=== PATIENT | female | born 1990 | race Hispanic/Latino ===

== ENCOUNTER 2019-01-24 16:52 | Day surgery (SDC) | payer OTHER ==
[2019-01-24 17:27] VITALS: BP 113/55; TEMP 99.1; BMI 45.3
--- NOTE | 2019-01-24 19:16 | PDOC.LDHP ---
Labor and Delivery H&P Chief complaint: other ([place] BBP) HPI: Ms. Ascencio is a pleasant 28yo female @ 38.2 by LMP confirmed by u/s at 15.4 complicated by maternal obesity and glucose intolerance who presents from clinic for concerning BPP. BPP was 10/31 with concern for oligohydramnios with RUBIO 5.42. She endorses good movement; no contractions; no vaginal d/c, bleeding, or LOF. has been complicated by maternal obesity which has been monitored with weekly BPP's since 32wks, last showed RUBIO of 15 and BPP 03/04. She failed her 1hr GTT (150), but passed her 3hr GTT. She has no gynocologic history and no history of STD's. Current gestational age (weeks): 38 (38.2) Dating criteria: last menstrual period Grav: 1 Para: 0 Current complications: none Past Medical History: GERD prior to . No other significant medical history. Current medications: pre- vitamins Previous surgical history: none Allergies/Adverse Reactions: Allergies Allergy/AdvReac Type Severity Reaction Status Date / Time No Known Allergies Allergy Unverified 01/24/19 17:18 Social history: none - Physical Exam Vital signs reviewed and normal: yes General: NAD, resting Heart: RRR Lungs: nonlabored breathing Abdomen: NTTP Extremeties: trace edema FHT: category 1, variability present [place] contractions every: infrequent - OB Labs Blood type: B RH: positive Antibody Screen: negative HIV: negative RPR: negative HEPSAg: negative 1 hour GCT: positive 3 hour GTT: normal GBS: negative Rubella: immune Additional Labs: A1C 5.3 H/H 11.6/34.5 - Assessment Concerning BPP 10/31 at clinic with concern for oligohydramnios - Plan Plan: admit to L&D -: 1. IUP with Concerning BPP - 38.2 today. No contractions, Cat 1 strip, FHR 150, no LOF or vaginal d/c - 10/31 in clinic today with RUBIO 5.42. Previously 03/04 with RUBIO 15 - Will repeat BPP now with growth ultrasound. - Encourage PO hydration and food intake - Continuous EFM VTE: ambulation Diet: Regular Code: Full Upper Level note: 28 y/o @ 38.2 WGA was sent over to L&D to be evaluated for 01/02 BPP in clinic. Her has been complicated by obesity, glucose intolerance, and concern for oligo. A/P: repeat BPP performed that was 12/31 with 2 off for breathing NST reactive RUBIO WNL Discharged home with strict return precautions. f/u with PNC and for induction on 01/30/19. Marianne Corbin MD, PGY-3 Addendum - Attending - Attending Attestation Date/Time: 01/25/19 0718 I personally evaluated the patient and discussed the management with Drs. Bergman and Shaquille. I agree with the History, Examination, Assessment and Plan documented above. Initial BPP 01/02 in clinic, sent over for repeat testing. Repeat BPP 03/04 (-2 for breathing) and growth ultrasound wnl. D/c home with precautions to return for scheduled induction next week.
--- NOTE | 2019-01-24 20:29 | ULT ---
EXAM: OB ultrasound COMPARISON: None HISTORY: female. Borderline oligohydramnios. TECHNIQUE: Multiplanar grayscale and color Doppler images were obtained in a transabdominal ult rasound. FINDINGS: There is a single live intrauterine with heart rate of 150 bpm. Estimated weight is 3493 g. Average age of the fetus based off today's examination is 38 weeks 4 days. BPD 9.52 cm -- 38 weeks 6 days HC 33.76 cm -- 38 weeks 5 days AC 34.25 cm -- 38 weeks 1 day FL 7.57 cm -- 38 weeks 5 days The placenta is anterior in location without focal abnormality. RUBIO is 10.2 cm which is low normal. The cervix was not seen secondary to shadowing from the head. There is no evidence of placenta previa. Biophysical profile: 6 of 8. 0 was given for breathing was which is not seen during the examina tion. IMPRESSION: 1. Single live intrauterine with estimated age of 34 weeks 4 days. 2. Biophysical profile of 6 of 8
== END 2019-01-24 20:11 | disposition home or self-care (01) ==
LOC: L&D/OP 16:52
PROVIDERS: ATTEND Obstetrics & Gynecology
DX: O41.03X0 Oligohydramnios, third trimester, not applicable or unspecified (principal); O99.213 Obesity complicating pregnancy, third trimester; E66.9 Obesity, unspecified; O99.810 Abnormal glucose complicating pregnancy; Z3A.38 38 weeks gestation of pregnancy
CPT/HCPCS: 76700; 76815; 76819; 99282

== ENCOUNTER 2019-01-30 19:30 | Inpatient (IN) | payer MEDICAID, OTHER, SELFPAY ==
[2019-01-30 23:42] VITALS: BMI 52.7
[2019-01-30] MEDS: Lactated Ringer's 1,000 ML IV SCH (23:45)
--- NOTE | 2019-01-31 00:50 | PDOC.FPROB ---
FMR OB H&P: HPI - History of Present Illness Chief Complaint: Labor induction History of Present Illness: Patient is a 28 yo female at 39.1 weeks who presents today for elective labor induction. Her course has been complicated by morbid obesity ( BMI 52) with at least 40 pound weight gain during the . She has been followed by MFM and has been receiving weekly BPP. anatomy scan was normal at 20 weeks. She was evaluated on L&D last week on 01/24/19 for possible oligohydramnios and concerning BPP of 4/8 at the clinic. At that time on L&D her BPP was 6/10. She was discharged home with close follow up with PCP Deedee Luu DO. It was decided at last clinic visit that she would be scheduled for induction today. Blood type: B positive GBS negative Rubella immune Primary Care Physician: Deedee Luu DO FMR OB H&P: Current - Care : 1 Para: 0 Gestational age: 39.1 weeks Due date: 02/05/19 per 16.0 week U/S & LMP Total weight gain: 40 pounds - OB Labs Blood type: B RH: positive Antibody Screen: negative HIV: negative RPR: negative HepBsAg: negative Rubella: immune Quad screen: negative Gonorrhea: negative Chlamydia: negative 1 hour gtt: failed 3 hour GTT: passed GBS: negative - Anatomy Survey Anatomy survey: Normal FMR OB H&P: History - Past Medical History PMH: Morbid obesity - OB History OB History: at 39.1 weeks EGA. Placenta is located left anterior. Has been followed by [facility] in [place]. Normal anatomy scan at 20 weeks. FMR OB H&P: Medications - Current Home Medications: Medication Instructions Recorded Confirmed Type 105/Iron/Folic AC/Dha 1 tab PO DAILY 01/24/19 01/30/19 History [Prena1 True Combo Pack] Allergies/Adverse Reactions: Allergies Allergy/AdvReac Type Severity Reaction Status Date / Time No Known Allergies Allergy Unverified 01/24/19 17:18 FMR OB H&P: ROS - Review of Systems General: denies: fever/chills, fatigue, recent trauma Eyes: denies: vision changes Cardiovascular: denies: chest pain, edema Respiratory: denies: cough, congestion, shortness of breath Gastrointestinal: denies: abdominal pain, nausea, vomiting, diarrhea, constipation Genitourinary (Female): denies: vaginal discharge, vaginal pain, vaginal bleeding, contractions, vaginal pressure Musculoskeletal: denies: pain, tenderness, swelling, decrease range of motion Neurologic: denies: syncope, weakness, headache Integumentary: denies: itching, rash, lesions FMR OB H&P: Vital Signs - Maternal Vital signs: Vital Signs - First Documented Temp Pulse Resp BP Pulse Ox 98.6 F 81 18 101/64 95 01/30/19 23:36 01/30/19 23:36 01/30/19 23:36 01/30/19 23:36 01/30/19 23:36 - Heart Tones Baseline: 130 Variability: moderate Acceleration: present Deceleration: absent Category: category 1 FMR OB H&P: Physical Exam - Physical Exam General: NAD, awake, alert and oriented HEENT: normocephalic and atraumatic, EOMI, grossly normal vision, grossly normal hearing Neck: supple, FROM Abdomen: soft, non-tender Neurological: sensation to pain,touch and proprioception grossly normal Skin: no rash, good tugor, no jaundice Psychiatric: intact recent and remote memory, normal mood and affect - Pelvic Exam Vulva: normal hair distribution, no lesions, no discharge, no blood Cervix: no blood Deviation from normal: cervix high, thick, and closed Godfrey score: 0 Membranes: intact Presentation: vertex FMR OB H&P: A/P - Problem List (1) Morbid obesity Current Visit: Yes Status: Chronic Code(s): E66.01 - MORBID (SEVERE) OBESITY DUE TO EXCESS CALORIES (2) Term Current Visit: Yes Status: Acute Code(s): Z34.90 - ENCNTR FOR SUPRVSN OF NORMAL , UNSP, UNSP TRIMESTER Disposition: 1. Term at 39.1 weeks 2. Morbid obesity Patient here for elective labor induction. Due to current Godfrey score of 0, will plan to start Cytotec at 0100. Will recheck cervix at 0430. Admission OB labs ordered. Anticipate vaginal delivery. Discussion: Date/Time: 01/31/19 0045 This H&P was discussed with [] and [] who agree with the above documentation and plan.
[2019-01-31] MEDS ORDERED: Acetaminophen 500 MG TAB PO PRN (00:54)
[2019-01-31] MEDS ORDERED: Ondansetron PF 4 MG/2 ML Vial IVP PRN ×2 (00:54→16:19)
[2019-01-31] MEDS ORDERED: Promethazine HCl 25 MG/ML VIAL IM PRN ×2 (00:54→16:19)
[2019-01-31] MEDS ORDERED: NS / Oxytocin 40 units/1000ml 1,000 ML IV PRN (00:54)
[2019-01-31] MEDS ORDERED: Ibuprofen 800 MG TAB PO PRN (00:54)
[2019-01-31] MEDS ORDERED: Lidocaine 1% (PF) 30 ML VIAL SC PRN (00:54)
[2019-01-31] MEDS ORDERED: HYDROcodone/Acetaminophen 5/325 mg Tablet PO PRN (00:54)
[2019-01-31] MEDS ORDERED: Carboprost 250 MCG/ML AMP IM PRN (00:54)
[2019-01-31] MEDS ORDERED: hydrALAZINE 20 MG/ML VIAL SLOW IVP PRN (00:54)
[2019-01-31] MEDS ORDERED: Misoprostol 200 MCG TAB PR PRN (00:54)
[2019-01-31] MEDS ORDERED: Methylergonovine 0.2 MG/ML VIAL IM PRN (00:54)
[2019-01-31] MEDS ORDERED: Diphenoxylate HCl/Atropine Tablet PO PRN (00:54)
[2019-01-31] MEDS: Misoprostol 100 MCG TAB VAG SCH ×3 (01:12→08:47)
[2019-01-31 01:14] LABS: Hemoglobin 12.3 g/dL (12.0-16.0); Mean Corpuscular HGB CONC 33.2 g/dL (32.0-36.0); Mean Corpuscular Hemoglobin 28.7 pg (27.0-31.0); Mean Corpuscular Volume 86.4 fL (78.0-98.0); Mean Platelet Volume 9.6 fL (7.4-10.4); Platelet Count 196 thou/uL (130-400); RBC Distribution Width 12.5 % (11.5-14.5); Red Blood Cell (RBC) Count 4.28 mill/uL (4.20-5.40)
[2019-01-31 01:51] LABS: HBSAg Index 0.27 S/CO (0-0.99); Hep B Surf Ag Non-Reactive S/CO (NonReactive)
--- NOTE | 2019-01-31 04:22 | PDOC.LDPN ---
Labor & Delivery Progress Note - Subjective Subjective: comfortable - Objective Vital signs reviewed and normal: yes General: NAD, resting, breathing through contractions Uterine fundus: non tender Effacement: 0% Station: -3 FHT: category 1 [place] contractions every: 2-3 min - Assessment (1) Morbid obesity Code(s): E66.01 - MORBID (SEVERE) OBESITY DUE TO EXCESS CALORIES Current Visit : Yes Status: Chronic (2) Term Code(s): Z34.90 - ENCNTR FOR SUPRVSN OF NORMAL , UNSP, UNSP TRIMESTER Current Visit: Yes Status: Acute Plan: continue plan of care, labor augmentation (Cytotec x2) -: Induction of labor for morbid obesity at 39.1 weeks. Continues to have category 1 strip. Contractions every 2-3 min. Normal vitals. Plan to apply cytotec again. Recheck in 3-4 hours.
--- NOTE | 2019-01-31 08:00 | PDOC.EVN ---
Event Note - Event Note Event Note: 0655: Pt states she feels questionable contractions spaced >10 minutes apart. Denies any abdominal pain, headache, vaginal pain or noticing any vaginal fluid/ blood/discharge.
--- NOTE | 2019-01-31 08:39 | PDOC.LDPN ---
Labor & Delivery Progress Note - Subjective Subjective: comfortable - Objective Vital signs reviewed and normal: yes General: NAD Uterine fundus: non tender Dilation: 1cm Effacement: 50% Station: -2 FHT: category 1 - Assessment (1) Term Code(s): Z34.90 - ENCNTR FOR SUPRVSN OF NORMAL , UNSP, UNSP TRIMESTER Current Visit: Yes Status: Acute (2) Morbid obesity Code(s): E66.01 - MORBID (SEVERE) OBESITY DUE TO EXCESS CALORIES Current Visit : Yes Status: Chronic Plan: continue plan of care, labor augmentation -: Term w/ induction of labor - cytotec at 0100 and 0410, recheck in 4hrs (1230) - pt is showing cervical change, 1, 50%, -2, Godfrey 7 - Tracing had recent change from cat 1 to cat 2 due to minimal variability, will hold on cytotec and give mother juice - Minimal perceivable contractions, spaced > 10 minutes - Monitor shows small amplitude cxns spaced variably from 3-10 minutes Morbid obesity - will evp general counsel upon D/C Case discussed with Dr. Luu
--- NOTE | 2019-01-31 12:40 | PDOC.LDPN ---
Labor & Delivery Progress Note - Subjective Subjective: comfortable, painful contractions (mildly, primarily in her back) - Objective Vital signs reviewed and normal: yes General: NAD Uterine fundus: non tender Dilation: 1 Effacement: 50% Station: -2 FHT: category 1 [place] contractions every: 2-4min - Assessment (1) Term Code(s): Z34.90 - ENCNTR FOR SUPRVSN OF NORMAL , UNSP, UNSP TRIMESTER Current Visit: Yes Status: Acute (2) Morbid obesity Code(s): E66.01 - MORBID (SEVERE) OBESITY DUE TO EXCESS CALORIES Current Visit : Yes Status: Chronic Plan: continue plan of care -: Term w/ induction of labor - cytotec at 0100, 0410, and 0900 - nurse notes 2nd cytotec fell out and likely not effective - 0800 check: 1, 50%, -2, ant, Godfrey 7; 1200 check: 1, 50%, -2 mid, Godfrey 6 - Tracing: Baseline 130, moderate variability, no accels, no decels, cxn occurring q2-4 minutes - Cxns are now more perceivable, pt notes pain primarily in her back - Plan to walk to the pt now, will attempt placement of balloon, if successful will leave in place for 12hrs or until it's removable without deflation Morbid obesity - will family court counsellor upon D/C
[2019-01-31] MEDS ORDERED: Butorphanol Tartrate 1 MG/ML VIAL ONE (13:48)
[2019-01-31] MEDS ORDERED: Butorphanol Tartrate 1 MG/ML VIAL SLOW IVP PRN (14:00)
[2019-01-31] MEDS ORDERED: Fentanyl 4 mcg/Bup 0.1% Cadd 100 ML ONE ×2 (15:17→23:10)
[2019-01-31] MEDS: Lactated Ringer's 1,000 ML IV SCH ×2 (16:14→18:15)
[2019-01-31] MEDS ORDERED: diphenhydrAMINE 50 MG/ML VIAL IVP PRN (16:19)
[2019-01-31] MEDS ORDERED: Lactated Ringer's 500 ML IV PRN (16:19)
[2019-01-31] MEDS ORDERED: Naloxone HCl 0.4 mg/ml Vial IVP PRN ×2 (16:19)
[2019-01-31] MEDS ORDERED: Acetaminophen 325 MG TAB PO PRN (16:19)
[2019-01-31] MEDS ORDERED: ePHEDrine/0.9% NaCl/PF SYRINGE 50 mg/10 ml SLOW IVP PRN (16:19)
[2019-01-31] MEDS ORDERED: Communication Order-Pharmacy FS SCH (16:30)
[2019-01-31] MEDS ORDERED: Fentanyl 4 mcg/Bupivacaine 0.1% Cassette 100 ML EPIDURAL SCH (16:30)
[2019-01-31] MEDS: NS w/ Oxytocin 10 units 500 ML IV SCH (16:35)
--- NOTE | 2019-01-31 17:17 | PDOC.LDPN ---
Labor & Delivery Progress Note - Subjective Subjective: comfortable - Objective Vital signs reviewed and normal: yes General: NAD, resting Uterine fundus: non tender Dilation: 5 Effacement: 50% Station: -2 FHT: category 1 - Assessment (1) Term Code(s): Z34.90 - ENCNTR FOR SUPRVSN OF NORMAL , UNSP, UNSP TRIMESTER Current Visit: Yes Status: Acute (2) Morbid obesity Code(s): E66.01 - MORBID (SEVERE) OBESITY DUE TO EXCESS CALORIES Current Visit : Yes Status: Chronic (3) Glucose intolerance Code(s): E74.39 - OTHER DISORDERS OF INTESTINAL CARBOHYDRATE ABSORPTION Current Visit: Yes Status: Acute Plan: pitocin for augmentation -: Term w/ induction of labor - cytotec at 0100, 0410, and 0900 - nurse notes 2nd cytotec fell out and likely not effective - 0800 check: 1, 50%, -2, ant, Godfrey 7; 1200 check: 1, 50%, -2 mid, Godfrey 6; 1300 3, 50%, -2 mid; 1700 5, 60%, -2, ant Godfrey 10 - Tracing: Baseline 135, moderate variability, no accels, no decels, cxn occurring q2-4 minutes - Epidural at 1600 - Pitocin protocol initiated at 1400 - Balloon out at 1700 Morbid obesity - will career guidance counselor upon D/C Glucose intolerance - failed 1hr, passed 3hr gtt
--- NOTE | 2019-01-31 20:44 | PDOC.LDPN ---
Labor & Delivery Progress Note - Subjective Subjective: comfortable - Objective Vital signs reviewed and normal: yes General: NAD, resting SVE: at 20:[address] Chicas Dilation: 7 Effacement: 75% Station: -2 FHT: category 1 (Baseline 150, moderate variability, no decelerations) [place] contractions every: 1-2 min Other exam findings: intact membranes - Assessment (1) Morbid obesity Code(s): E66.01 - MORBID (SEVERE) OBESITY DUE TO EXCESS CALORIES Current Visit : Yes Status: Chronic (2) Term Code(s): Z34.90 - ENCNTR FOR SUPRVSN OF NORMAL , UNSP, UNSP TRIMESTER Current Visit: Yes Status: Acute Comment: Pitocin at 14, making cervical change, will continue current plan Plan: continue plan of care
--- NOTE | 2019-01-31 22:48 | PDOC.LDPN ---
Labor & Delivery Progress Note - Subjective Subjective: comfortable - Objective Vital signs reviewed and normal: yes General: NAD, resting, breathing through contractions Uterine fundus: non tender SVE: at 22:[address] Corbin, Dr. Chicas and RN Dilation: 7 Effacement: 75% Station: -2 FHT: category 1 (FHR 150 baseline, moderate variability, no decelerations) [place] contractions every: 1-2 min Other exam findings: membranes intact - Assessment (1) Morbid obesity Code(s): E66.01 - MORBID (SEVERE) OBESITY DUE TO EXCESS CALORIES Current Visit : Yes Status: Chronic (2) Term Code(s): Z34.90 - ENCNTR FOR SUPRVSN OF NORMAL , UNSP, UNSP TRIMESTER Current Visit: Yes Status: Acute Comment: Pitocin at 14, making cervical change, will continue current plan Plan: continue plan of care, other (Will have patient sit upright to apply gravity due to baby not being well engaged. Will recheck in 45-60 min to evaluate for possible AROM.)
--- NOTE | 2019-01-31 23:45 | PDOC.LDPN ---
Labor & Delivery Progress Note - Subjective Subjective: comfortable - Objective Vital signs reviewed and normal: yes General: NAD, resting, breathing through contractions Uterine fundus: non tender SVE: at 23:[address] Buitrago Dilation: 7 Effacement: 75% Station: -2 FHT: category 1 (FHR baseline 150, moderate variability, 2 isolated variable decelerations that are not recurrent) [place] contractions every: 2 min - Assessment (1) Morbid obesity Code(s): E66.01 - MORBID (SEVERE) OBESITY DUE TO EXCESS CALORIES Current Visit : Yes Status: Chronic (2) Term Code(s): Z34.90 - ENCNTR FOR SUPRVSN OF NORMAL , UNSP, UNSP TRIMESTER Current Visit: Yes Status: Acute Comment: Baby still not engaging cervix well. Unable to perform AROM safely. Discontinue Pitocin augmentation at this time for overnight. Will resume in the early AM. Will ask anesthesia to turn down epidural to allow for patient to ambulate with assistance. Will let patient eat overnight. Plan to recheck at 0600 on 02/01/19.
[2019-02-01] MEDS: Lactated Ringer's 1,000 ML IV SCH ×3 (06:00→20:28)
--- NOTE | 2019-02-01 06:06 | PDOC.LDPN ---
Labor & Delivery Progress Note - Subjective Subjective: comfortable - Objective General: NAD Uterine fundus: non tender SVE: @[address] Chicas Dilation: 7 Effacement: 75% Station: -2 FHT: category 1 (Moderate variability, FHR 130, no decelerations) [place] contractions every: 5-6min Other exam findings: Intact membranes - Assessment (1) Term Code(s): Z34.90 - ENCNTR FOR SUPRVSN OF NORMAL , UNSP, UNSP TRIMESTER Current Visit: Yes Status: Acute Comment: Baby still not engaging cervix well. Unable to perform AROM safely. Will restart epidural and pitocin augmentation after reactive NST. Recheck at 1000am (2) Morbid obesity Code(s): E66.01 - MORBID (SEVERE) OBESITY DUE TO EXCESS CALORIES Current Visit : Yes Status: Chronic (3) Glucose intolerance Code(s): E74.39 - OTHER DISORDERS OF INTESTINAL CARBOHYDRATE ABSORPTION Current Visit: Yes Status: Acute Plan: pitocin for augmentation
[2019-02-01] MEDS: Misoprostol 100 MCG TAB VAG SCH ×6 (06:58→20:34)
[2019-02-01] MEDS: NS w/ Oxytocin 10 units 500 ML IV SCH ×2 (07:00→14:20)
[2019-02-01] MEDS ORDERED: Fentanyl 4 mcg/Bup 0.1% Cadd 100 ML ONE (11:45)
--- NOTE | 2019-02-01 12:03 | PDOC.EVN ---
Event Note - Event Note Event Note: Late entry from 0900 Pt examined. Cervix /-2 Unable to interpret FHT due to difficulty monitoring baby Pt AROMed. IUPC and FSE placed. Titrate pitocin to adequate MVUs. Recheck 4 hrs.
[2019-02-01] MEDS ORDERED: Lidocaine 1% (PF) 30 ML VIAL ONE (12:10)
[2019-02-01] MEDS ORDERED: NS / Oxytocin 40 units/1000ml 0 ML ONE (12:10)
--- NOTE | 2019-02-01 14:57 | PDOC.EVN ---
Event Note - Event Note Event Note: 14:52 on 02/01 Patient unchanged at 14:50 with cervical exam of 5.5/80/-2. Discussed proceeding with C/S given patient has not made change since 17:00 last night. Appears to have cephalopelvic disproportion. Patient has been on pitocin with adequate contractions and no cervical change >4 hours. Patient understood risks and benefits of proceeding with C/S. Geophysical Operator used and all questions answered. Jennifer Siegel, DO PGY-3
[2019-02-01] MEDS: Bicitra 30 ML UDCUP ONE ×2 (15:42→18:35)
[2019-02-01] MEDS ORDERED: Oxytocin 10 UNITS/ML VIAL ONE ×2 (15:49→16:33)
[2019-02-01] MEDS ORDERED: Ondansetron PF 4 MG/2 ML Vial ONE ×2 (15:49→16:42)
[2019-02-01] MEDS ORDERED: Ketorolac Tromethamine 30 MG/ML VIAL ONE ×2 (15:49→16:42)
[2019-02-01] MEDS ORDERED: Phenylephrine HCL 10 MG/ML VIAL ONE (15:51)
[2019-02-01] MEDS ORDERED: Fentanyl 100 MCG/2 ML VIAL ONE (16:12)
[2019-02-01] MEDS ORDERED: MORPHINE 5 MG/10 ML PF VIAL ONE (16:25)
[2019-02-01] MEDS ORDERED: PHENYLEPHRINE-NS 100 MCG/ML 10 ML SYRINGE ONE (16:42)
[2019-02-01] MEDS ORDERED: Methylergonovine 0.2 MG/ML VIAL ONE (16:43)
[2019-02-01] MEDS ORDERED: Ondansetron PF 4 MG/2 ML Vial IVP PRN (17:25)
[2019-02-01] MEDS ORDERED: Naloxone HCl 0.4 mg/ml Vial IVP PRN ×2 (17:25)
[2019-02-01] MEDS ORDERED: Promethazine HCl 25 MG/ML VIAL IM PRN (17:25)
[2019-02-01] MEDS ORDERED: L&D-Morphine 4 MG/ML VIAL SLOW IVP PRN (17:25)
[2019-02-01] MEDS ORDERED: Naloxone HCl 0.4 mg/ml Vial IV PRN (17:25)
[2019-02-01] MEDS ORDERED: Meperidine HCl/PF 25 MG/ML VIAL SLOW IVP PRN (17:25)
[2019-02-01] MEDS ORDERED: diphenhydrAMINE 50 MG/ML VIAL IVP PRN (17:25)
[2019-02-01] MEDS ORDERED: Ondansetron HCl/PF 4 MG/2 ML Vial IVP PRN (17:25)
[2019-02-01] MEDS ORDERED: Promethazine HCl 25 MG SUPP PR PRN (17:25)
[2019-02-01] MEDS ORDERED: HYDROmorphone 2 MG/ML VIAL SLOW IVP PRN (17:25)
[2019-02-01] MEDS ORDERED: Azithromycin 500 MG in Sodium Chloride 0.9% 250 ML 250 ML IVPB SCH ×2 (17:30→19:00)
[2019-02-01] MEDS ORDERED: Communication Order-Pharmacy FS SCH (17:30)
[2019-02-01] MEDS ORDERED: CEFAZOLIN 2 GM in Premix Bag 1 BAG IVPB SCH (17:30)
[2019-02-01] MEDS ORDERED: Bicitra 30 ML UDCUP PO SCH (17:30)
[2019-02-01 19:15] LABS: Syphilis Antibody Nonreactive (Nonreactive); Syphilis Antibody Index 0.04 S/CO (<1.00 Non-Reactive)
--- NOTE | 2019-02-01 22:25 | PDOC.EVN ---
Event Note - Event Note Event Note: At 2130, patient was resting quietly in her room with male baby at bedside. She states that she feels well, but is having mild pain 2/10 near her caesarean incision. She denies pain anywhere else. She recently had her pad changed about 1 hour ago, her current pad is about 1/4 full of blood. ROS: Denies headache, blurry vision, nausea/vomiting, LE cramping or swelling. Has mild tenderness over abdominal incision site. PE: Vitals: Temp 99.1F, HR 64, RR 18, BP 143/96 Wound vac placed over caesarean incision, surrounding skin is dry and intact. No lower extremity edema. No fundal tenderness to palpation. Assessment & Plan: 1. S/P , 4 hours -Uncomplicated of healthy male at 1622 today. Patient recovering well. Will continue pain control and routine post- care. Patient instructed to notify RN if increased pain at incision site. 2. Morbid obesity
[2019-02-01] MEDS: Ketorolac Tromethamine 30 MG/ML VIAL IVP PRN (23:19)
[2019-02-02] MEDS: Lactated Ringer's 1,000 ML IV SCH (05:03)
[2019-02-02] MEDS: Ketorolac Tromethamine 30 MG/ML VIAL IVP PRN (05:04)
[2019-02-02] MEDS ORDERED: Adacel (T-DAP) 0.5 ML SYRINGE IM ONE (08:17)
[2019-02-02] MEDS ORDERED: hydrALAZINE 20 MG/ML VIAL SLOW IVP PRN ×2 (08:17→08:19)
[2019-02-02] MEDS ORDERED: HYDROcodone/Acetaminophen 5/325 mg Tablet PO PRN ×3 (08:19→10:15)
[2019-02-02] MEDS ORDERED: diphenhydrAMINE 25 MG CAP PO PRN (08:19)
[2019-02-02] MEDS ORDERED: Simethicone Chewable 80 MG TAB PO PRN (08:19)
[2019-02-02] MEDS ORDERED: Lanolin Ointment 7 GM TUBE TOP PRN (08:19)
--- NOTE | 2019-02-02 08:20 | PDOC.OPDEL ---
OB Operative/Delivery Note Delivery Dr/Surgeon: Chantal PGY-3, Osmani PGY-3, Deedee Luu Attending Pre-Delivery Diagnosis: medically indicated induction Procedure/Post Delivery Dx: primary low transverse CS Weeks gestation: 39 (3 days) Anesthesia: epidural - Findings A Sex: male Weight: 3.827 kg - 1 min: 8 - 5 min: 9 - Additional Findings/Plan Estimated blood loss: 990 Compilations/Other Findings: Date of Procedure: 02/01/19 Procedure: Primary low transverse caesarean section Preoperative Diagnosis: 1)Term intrauterine 2) Failure to Progress 3) Glucose Intolerance 4) Morbid Obesity Postoperative Diagnosis: 1)same as above plus any other findings during surgery Anesthesia: epidural Indications: The patient is a 28 year old G1,P0 female at 39.3 weeks gestation who presents for a primary LTCS due to infant failure to progress. Procedure in Detail: After risks, benefits, and alternatives were explained to the patient, she gave informed consent. Pre-operative antibiotics included Cefazolin 2 gram IV and Azithromycin 500 mg IV. The patient was taken to the operating room and epidural anesthesia was bolused. She was placed in the supine position with a left tilt and prepped and draped in usual sterile fashion. A Pfannenstiel incision was made with a scalpel and carried down to the level of the fascia which was sharply nicked. The fascial cut was extended bilaterally with curved Billingsley sissors. The inferior and superior edges of the cut fascial edges were elevated with Clifton clamps and the underlying rectus muscles were sharply and bluntly dissected free. The recti were divided digitally and retracted manually. The peritoneum was entered bluntly and retracted manually. An abilio O retractor was inserted and the uterus was visualized. There were some dilated uterine vessels off to the maternal Right of the uterues. A low transverse score was made with the scalpel more to the maternal left and the uterus was entered in the midline with the scalpel. Clear fluid was seen. The hysterotomy was extended manually. The was noted to be vertex and was easily delivered by fundal pressure. Mouth and nares were bulb suctioned. Cord clamped and cut and grossly normal male/female was handed to waiting nurse. Cord blood was obtained. Placenta was manually extracted, found to be intact with 3 vessel cord and discarded. The uterus was externalized and the endometrium was curetted with a dry lap. The uterus was closed with a running locking 1- Monocryl suture followed by a running non-locking 1-0 Monocryl imbricating suture. Following this hemostasis was noted. The abdomen was irrigated with saline and suctioned free of clots. The uterus was internalized and the hysterotomy was again noted to be hemostatic. The fascia was closed with a running non-locking 1 PDS suture. The subcutaneous tissue was irrigated and there were no bleeders. The subq was approximated with 2 running non locking 2-0 plain gut suture. The skin was approximated with asher and a wound vac dressing was placed. All counts were correct. The patient tolerated the procedure well and was taken to the recovery room in stable condition. QBL: 990 ml Complications: None Specimens: Cord blood sent to lab for blood type Findings: Grossly normal male infant with apgars of 8 and 9. Grossly normal placenta with 3 vessel cord discarded. Drains: Byrd to gravity draining clear urine Post delivery plan: routine recovery Addendum - Attending - Attending Attestation Date/Time: 02/02/19 5650 I was present for and assisted in the entire uncomplicated PLTCS completed by Angel Cornejo and Christal. I agree with documented findings.
--- NOTE | 2019-02-02 08:37 | PDOC.PP ---
Post Progress Note Post Day #: 1 Subjective: Pt reports doing well. Reports pain as minimal. Says current pain regimen working well. Pt has not been up and moving around much. Only eating clears at this time. Denies minimal lochia. Denies fever, chills, SOB, chest pain. Denies any n/v/d/c. Denies any dizziness or lightheadness. PO intake tolerated: yes Flatus: no Ambulation: yes (Minimal) Vital Signs (12 hours) Temp Pulse Resp BP Pulse Ox 02/02/19 08:02 98.3 F 68 20 90/50 L 96 02/02/19 08:00 96 02/02/19 05:00 98.0 F 63 16 96/50 L 02/01/19 23:25 98.0 F 75 18 101/54 L 02/01/19 21:30 99.1 F 64 16 103/46 L Weight Weight 143.789 kg - Physical Examination General: NAD Cardiovascular: no m/r/g, RRR Respiratory: clear to auscultation bilaterally, non-labored breathing Abdominal: + bowel sounds, lochia (Reports as light), no distention, appropriately TTP Fundus firm & at: Umbilicus Extremities: negative homans (B) Skin: CS incision dry & intact (Wound vac in place. NO sign redness or drainage) Neurological: no gross focal deficits Psychiatric: A&Ox3, normal affect Result Diagrams: 02/02/19 08:41 Additional Labs: Post Labs Blood Type B POSITIVE 01/31/19 01:25 Hep Bs Antigen Non-Reactive S/CO (NonReactive) 01/31/19 01:04 (1) Glucose intolerance Code(s): E74.39 - OTHER DISORDERS OF INTESTINAL CARBOHYDRATE ABSORPTION Status : Acute (2) Term Code(s): Z34.90 - ENCNTR FOR SUPRVSN OF NORMAL , UNSP, UNSP TRIMESTER Status: Acute Comment: Baby still not engaging cervix well. Unable to perform AROM safely. Will restart epidural and pitocin augmentation after reactive NST. Recheck at 1000am (3) Morbid obesity Code(s): E66.01 - MORBID (SEVERE) OBESITY DUE TO EXCESS CALORIES Status: Chronic (4) delivery delivered Code(s): O82 - ENCOUNTER FOR DELIVERY WITHOUT INDICATION Status: Acute - Assessment/Plan 28 yo ->1 @ 39.3 wks delivered BELLO Riley via primary LTCS due to failure to progress -Routine post care. -Continue current pain regimen. Pt reports minimal pain. -Wound vac in place. No sign of drainage or swelling. -Advance diet as tolerated. -Lovenox for DVT ppx Morbid Obesity Glucose Intolerance Addendum - Attending - Attending Attestation Date/Time: 02/02/19 1053 I personally evaluated the patient and discussed the management with Dr. Cornejo I agree with the History, Examination, Assessment and Plan documented above with any addition or exceptions noted below. Stable POD # 1 s/p primary section for arrest of dilation. Meeting appropriate milestones. Urine output adequate over last 4 hrs. 200 ml/hr Continue routine postop care. D/C montes today. Encouraged ambulation. Acute blood loss anemia but appropriate drop in h+h postoperatively. Asymptomatic. PO Iron at discharge Anticipate d/c to home on POD #2 or 3.
[2019-02-02 09:05] LABS: #Eosinphils 0.1 thou/uL (0.0-0.7); #Lymphocytes 2.1 thou/uL (1.20-3.40); #Monocytes 0.7 thou/uL (0.11-0.59); #Neutrophils 4.6 thou/uL (1.40-6.50); %Basophils 0.6 % (0.0-1.0); %Eosinophils 1.4 % (0.0-10.0); %Lymphocytes 27.8 % (21.0-51.0); %Monocytes 8.7 % (0.0-10.0); %Neutrophils 61.5 % (42.0-75.0); Hemoglobin 10.3 g/dL (12.0-16.0); Mean Corpuscular Hemoglobin 27.2 pg (27.0-31.0); Mean Corpuscular Volume 87.5 fL (78.0-98.0); Mean Platelet Volume 9.3 fL (7.4-10.4); Platelet Count 164 thou/uL (130-400); RBC Distribution Width 12.3 % (11.5-14.5); Red Blood Cell (RBC) Count 3.78 mill/uL (4.20-5.40); White Blood Cell (WBC) Count 7.5 thou/uL (4.8-10.8)
[2019-02-02] MEDS ORDERED: Enoxaparin Sodium 80 MG/0.8 ML SYRINGE SC SCH (10:00)
[2019-02-02] MEDS: Docusate Calcium (SURFAK) 240 MG CAP PO SCH ×2 (10:07→21:30)
[2019-02-02] MEDS: Prenatal Vitamin 1 TAB PO SCH (10:07)
[2019-02-02] MEDS: Ibuprofen 800 MG TAB PO SCH ×2 (14:17→21:31)
[2019-02-02] MEDS: Ferrous Sulfate 325 MG TAB PO SCH (18:47)
[2019-02-02] MEDS: HYDROcodone/Acetaminophen 5/325 mg Tablet PO PRN (18:53)
[2019-02-03] MEDS: HYDROcodone/Acetaminophen 5/325 mg Tablet PO PRN ×3 (00:26→10:05)
[2019-02-03] MEDS: Ibuprofen 800 MG TAB PO SCH (05:09)
--- NOTE | 2019-02-03 07:27 | PDOC.PP ---
Post Progress Note Post Day #: 2 Subjective: Pt reports doing well. pt states pain comes and goes. Says that current pain regimen seems to be working for her. Denies any fever or chills. Denies any lightheadness or dizziness. Denies any chest pain or SOB. Pt reports lochia as light. PO intake tolerated: yes Flatus: yes Ambulation: yes Vital Signs (12 hours) Temp Pulse Resp BP Pulse Ox 02/03/19 05:00 98.6 F 65 16 112/58 L 02/03/19 00:20 98.2 F 75 16 110/69 02/02/19 20:10 97.3 F L 75 16 127/60 100 Weight Weight 143.789 kg - Physical Examination General: NAD Cardiovascular: no m/r/g, RRR Respiratory: clear to auscultation bilaterally, non-labored breathing Abdominal: + bowel sounds, lochia ([place] than her periods), no distention, appropriately TTP Fundus firm & at: below umbilicus Extremities: negative homans (B) Skin: CS incision dry & intact ([place] has wound vac on. No redness or drainage. ), no rash Neurological: no gross focal deficits Psychiatric: A&Ox3, normal affect Result Diagrams: 02/02/19 08:41 Additional Labs: Post Labs Blood Type B POSITIVE 01/31/19 01:25 Hep Bs Antigen Non-Reactive S/CO (NonReactive) 01/31/19 01:04 (1) Glucose intolerance Code(s): E74.39 - OTHER DISORDERS OF INTESTINAL CARBOHYDRATE ABSORPTION Status : Acute (2) Term Code(s): Z34.90 - ENCNTR FOR SUPRVSN OF NORMAL , UNSP, UNSP TRIMESTER Status: Acute Comment: Baby still not engaging cervix well. Unable to perform AROM safely. Will restart epidural and pitocin augmentation after reactive NST. Recheck at 1000am (3) Morbid obesity Code(s): E66.01 - MORBID (SEVERE) OBESITY DUE TO EXCESS CALORIES Status: Chronic (4) delivery delivered Code(s): O82 - ENCOUNTER FOR DELIVERY WITHOUT INDICATION Status: Acute - Assessment/Plan 28 yo ->1 @ 39.3 wks delivered BELLO Riley via primary LTCS due to failure to progress -Routine post care. -Continue current pain regimen. Pt reports pain comes and goes. -Wound vac in place. No sign of drainage or swelling. -Eating regular diet without any trouble. -Lovenox for DVT ppx -vital signs stable. Morbid Obesity Glucose Intolerance Addendum - Attending - Attending Attestation Date/Time: 02/03/19 1250 I personally evaluated the patient and discussed the management with Dr. Cornejo I agree with the History, Examination, Assessment and Plan documented above with any addition or exceptions noted below. Stable POD # 2 s/p primary section for arrest of dilation. Meeting appropriate milestones. Continue routine postop care. Acute blood loss anemia but appropriate drop in h+h postoperatively. Asymptomatic. PO Iron at discharge Pt requesting d/c to home today.
[2019-02-03] MEDS ORDERED: Enoxaparin Sodium 80 MG/0.8 ML SYRINGE SC SCH (07:45)
[2019-02-03] MEDS ORDERED: Enoxaparin Sodium 40 MG/0.4 ML SYRINGE SC SCH (07:45)
[2019-02-03] MEDS: Prenatal Vitamin 1 TAB PO SCH (09:41)
[2019-02-03] MEDS: Docusate Calcium (SURFAK) 240 MG CAP PO SCH (09:41)
[2019-02-03] MEDS: Ferrous Sulfate 325 MG TAB PO SCH (09:41)
[2019-02-03 11:29] VITALS: BP 104/63; TEMP 97.8
== END 2019-02-03 15:50 | disposition home or self-care (01) | DRG 787 ==
LOC: L&D 23:04 → 3SW 02-01 20:05
PROVIDERS: ADMIT Family Medicine; ATTEND Family Medicine
PROC: 10907ZC Drainage of Amniotic Fluid, Therapeutic from Products of Conception, Via Natural or Artificial Opening (ICD-10-PCS; 2019-01-30)
PROC: 3E0P7VZ Introduction of Hormone into Female Reproductive, Via Natural or Artificial Opening (ICD-10-PCS; 2019-01-30)
PROC: 0U7C7ZZ Dilation of Cervix, Via Natural or Artificial Opening (ICD-10-PCS; 2019-01-30)
PROC: 3E033VJ Introduction of Other Hormone into Peripheral Vein, Percutaneous Approach (ICD-10-PCS; 2019-01-30)
PROC: 10H07YZ Insertion of Other Device into Products of Conception, Via Natural or Artificial Opening (ICD-10-PCS; 2019-01-30)
PROC: 10D00Z1 Extraction of Products of Conception, Low, Open Approach (ICD-10-PCS; principal; 2019-02-01)
DX: O99.814 Abnormal glucose complicating childbirth (principal); D62 Acute posthemorrhagic anemia; O99.214 Obesity complicating childbirth; E66.01 Morbid (severe) obesity due to excess calories; R73.09 Other abnormal glucose; Z3A.39 39 weeks gestation of pregnancy; Z37.0 Single live birth; O61.9 Failed induction of labor, unspecified; O99.02 Anemia complicating childbirth
CPT/HCPCS: 36415; 51702; 76815; 85025; 85027; 86780; 86850; 86900; 86901; 87340; C1726; J0456; J0595; J0690; J1200; J1650; J1885; J2001; J2210; J2274; J2370; J2405; J2590; J3010; J7050

== ENCOUNTER 2020-07-29 08:10 | Outpatient (CLI) | payer OTHER ==
[2020-07-29 22:10] LABS: SARS-CoV-2 MS2 Positive; SARS-CoV-2 N Gene Negative; SARS-CoV-2 S Gene Negative; SARS-CoV-2 by NAA Not Detected (NotDetected); SARS-CoV-2 orf1ab Negative
== END 2020-07-29 08:11 | disposition home or self-care (01) ==
LOC: LABBT 08:10
PROVIDERS: ATTEND Obstetrics & Gynecology
DX: Z01.812 Encounter for preprocedural laboratory examination (principal); Z20.822 Contact with and (suspected) exposure to COVID-19
CPT/HCPCS: 87635; U0003

== ENCOUNTER 2020-07-31 05:31 | Inpatient (IN) | payer MEDICAID, OTHER, SELFPAY ==
--- NOTE | 2020-07-31 02:50 | PDOC.FPROB ---
FMR OB H&P: HPI - History of Present Illness Chief Complaint: RLTCS Indentification: 30 yo at 39.0 wga History of Present Illness: Patient presents for RLTCS. Feeling well. Denies VB, VD, LOF, Ctx. Endorses FM. Primary Care Physician: ORAL Johnson FMR OB H&P: Current - Care : 2 Para: 1001 Gestational age: 39.0 Due date: 08/07/2020 Course/Complications: Morbid Obesity Short IPI - OB Labs Blood type: B RH: positive Antibody Screen: negative HIV: negative RPR: negative HepBsAg: negative Rubella: immune Gonorrhea: negative Chlamydia: negative A1c: 5.3 GBS: negative Additional labs: hep c neg, 2hr gtt 77, 157, 111 TSH 2.0 FMR OB H&P: History - Past Medical History PMH: Obesity - OB History OB History: Prior term x1 for failure to progress - [employer]OCK [employer] History [employer] History: Denies STIs - Surgical History Sx History: c/sx1 - Social History Social History: Denies TAD. - Family History Family History: Denies FMR OB H&P: Medications - Current Home Medications: Medication Instructions Recorded Confirmed Type 105/Iron/Folic AC/Dha 1 tab PO DAILY 01/24/19 07/31/20 History [Prena1 True Combo Pack] Allergies/Adverse Reactions: Allergies Allergy/AdvReac Type Severity Reaction Status Date / Time No Known Allergies Allergy Verified 07/31/20 06:21 FMR OB H&P: ROS - Review of Systems General: denies: fever/chills Eyes: denies: vision changes ENT: denies: nasal congestion, rhinorrhea Cardiovascular: denies: chest pain, palpitation Respiratory: denies: cough, shortness of breath Gastrointestinal: denies: abdominal pain, cramping, nausea, vomiting, diarrhea Genitourinary (Female): denies: dysuria, vaginal discharge, vaginal pain, vaginal bleeding, contractions Musculoskeletal: denies: pain Neurologic: denies: numbness, weakness Integumentary: denies: itching, rash Hematologic/Lymphatic: denies: prolonged or excessive bleeding Psychological: denies: depression, anxiety FMR OB H&P: Vital Signs - Maternal Vital signs: BP 108/64 - Heart Tones Baseline: 130 (reactive) Variability: moderate Acceleration: present Deceleration: absent FMR OB H&P: Physical Exam - Physical Exam General: NAD, awake, alert and oriented HEENT: normocephalic and atraumatic, PERRLA, conjunctiva clear, no scleral icterus, grossly normal vision, grossly normal hearing Neck: supple, trachea midline Heart: RRR, normal S1/S2, no edema General: CTAB, no respiratory distress Abdomen: soft, gravid Musculoskeletal: pulses present Neurological: no focal deficit Skin: no rash, no jaundice Lymphatic: no unusual bruising or bleeding Psychiatric: intact recent and remote memory, normal mood and affect - Pelvic Exam Membranes: intact Presentation: cephalic by bedside sono Estimated Weight: 7 lbs FMR OB H&P: A/P Disposition: admit to L&D for RLTCS. Discussion: Date/Time: 07/31/20 0249 30 yo at 39.0 wga Term intrauterine Previous - admit for RLTCS - routine labs - Covid neg Morbid obesity Short interpregnancy interval Late to care This H&P was discussed with Dr. Buitrago, who agrees with the above documentation an d plan. Signature: Emi Johnson MD PGY2
[~2020-07-31 05:31] MED LIST: Acetaminophen 500 MG TAB PO PRN; Bicitra 30 ML UDCUP PO PRN; CEFAZOLIN 2 GM in Premix Bag 1 BAG IVPB SCH; Famotidine/PF 20 mg/2ml Vial SLOW IVP PRN; Lactated Ringer's 1,000 ML IV SCH; Ondansetron PF 4 MG/2 ML Vial IVP PRN; Promethazine HCl 25 MG/ML VIAL IM PRN; hydrALAZINE 20 MG/ML VIAL SLOW IVP PRN
[2020-07-31] MEDS ORDERED: hydrALAZINE 20 MG/ML VIAL SLOW IVP PRN ×2 (06:23→12:34)
[2020-07-31] MEDS ORDERED: diphenhydrAMINE 25 MG CAP PO PRN ×2 (06:23→15:44)
[2020-07-31] MEDS ORDERED: Simethicone Chewable 80 MG TAB PO PRN (06:23)
[2020-07-31] MEDS ORDERED: Adacel (T-DAP) 0.5 ML SYRINGE IM ONE (06:23)
[2020-07-31] MEDS ORDERED: Lanolin Ointment 7 GM TUBE TOP PRN ×2 (06:23→12:34)
[2020-07-31] MEDS ORDERED: HYDROcodone/Acetaminophen 5/325 mg Tablet PO PRN ×4 (06:23→20:30)
[2020-07-31] MEDS ORDERED: Acetaminophen 325 MG TAB PO PRN ×2 (06:23→12:34)
[2020-07-31] MEDS ORDERED: Ondansetron PF 4 MG/2 ML Vial IVP PRN ×3 (06:23→12:34)
[2020-07-31 06:36] VITALS: BMI 48.2
[2020-07-31] MEDS ORDERED: NS w/ Oxytocin 30 units 500 ML IV SCH (06:45)
[2020-07-31] MEDS ORDERED: Bicitra 30 ML UDCUP PO PRN (06:50)
[2020-07-31] MEDS ORDERED: Famotidine/PF 20 mg/2ml Vial SLOW IVP PRN (06:50)
[2020-07-31] MEDS ORDERED: Promethazine HCl 25 MG/ML VIAL IM PRN ×2 (06:50→08:26)
[2020-07-31] MEDS ORDERED: Lactated Ringer's 1,000 ML IV SCH (07:00)
[2020-07-31] MEDS ORDERED: CEFAZOLIN 2 GM in Premix Bag 1 BAG IVPB SCH (07:00)
[2020-07-31] MEDS ORDERED: Morphine PF 10 MG/10 ML VIAL ONE (07:16)
[2020-07-31 07:17] LABS: Hemoglobin 11.9 g/dL (12.0-16.0); Mean Corpuscular HGB CONC 32.7 g/dL (32.0-36.0); Mean Corpuscular Hemoglobin 28.5 pg (27.0-31.0); Mean Corpuscular Volume 87.2 fL (78.0-98.0); Mean Platelet Volume 9.5 fL (7.4-10.4); Platelet Count 213 thou/uL (130-400); RBC Distribution Width 12.7 % (11.5-14.5); Red Blood Cell (RBC) Count 4.17 mill/uL (4.20-5.40); White Blood Cell (WBC) Count 7.5 thou/uL (4.8-10.8)
[2020-07-31] MEDS ORDERED: Oxytocin 10 UNITS/ML VIAL ONE ×2 (07:17→09:05)
[2020-07-31] MEDS ORDERED: PHENYLEPHRINE-NS 100 MCG/ML 10 ML SYRINGE ONE (07:17)
[2020-07-31] MEDS ORDERED: Ondansetron PF 4 MG/2 ML Vial ONE (07:17)
[2020-07-31 07:58] LABS: HBSAg Index 0.18 S/CO (0-0.99); Hep B Surf Ag Non-Reactive S/CO (NonReactive); Syphilis Antibody Nonreactive (Nonreactive); Syphilis Antibody Index 0.02 S/CO (<1.00 Non-Reactive)
[2020-07-31] MEDS ORDERED: ePHEDrine 50 MG/ML VIAL ONE (08:19)
[2020-07-31] MEDS ORDERED: Promethazine HCl 25 MG SUPP PR PRN (08:26)
[2020-07-31] MEDS ORDERED: Naloxone HCl 0.4 mg/ml Vial IV PRN (08:26)
[2020-07-31] MEDS ORDERED: Naloxone HCl 0.4 mg/ml Vial IVP PRN ×2 (08:26)
[2020-07-31] MEDS ORDERED: Meperidine HCl/PF 25 MG/ML VIAL SLOW IVP PRN (08:26)
[2020-07-31] MEDS ORDERED: L&D-Morphine 4 MG/ML VIAL SLOW IVP PRN (08:26)
[2020-07-31] MEDS ORDERED: Ondansetron HCl/PF 4 MG/2 ML Vial IVP PRN (08:26)
[2020-07-31] MEDS ORDERED: diphenhydrAMINE 50 MG/ML VIAL IVP PRN (08:26)
[2020-07-31] MEDS ORDERED: HYDROmorphone 2 MG/ML VIAL SLOW IVP PRN (08:26)
[2020-07-31] MEDS ORDERED: Communication Order-Pharmacy FS SCH (08:30)
[2020-07-31] MEDS ORDERED: Ferrous Sulfate 325 MG TAB PO SCH (09:00)
[2020-07-31] MEDS ORDERED: Prenatal Vitamin 1 TAB PO SCH (09:00)
[2020-07-31] MEDS ORDERED: Docusate Calcium (SURFAK) 240 MG CAP PO SCH (09:00)
[2020-07-31] MEDS ORDERED: ePHEDrine 50 MG/ML VIAL SLOW IVP SCH (11:00)
[2020-07-31] MEDS ORDERED: Meperidine HCl/PF 25 MG/ML VIAL ONE (11:47)
[2020-07-31] MEDS ORDERED: NS / Oxytocin 40 units/1000ml 1,000 ML IV SCH (12:34)
--- NOTE | 2020-07-31 12:51 | PDOC.PP ---
Post Progress Note Post Day #: 0 Subjective: Feeling well. Denies heavy VB. Plans to breastfeed. Pain well controlled. PO intake tolerated: no Flatus: no Ambulation: no Vital Signs (12 hours) Temp Pulse Resp BP Pulse Ox 07/31/20 06:21 99.4 F 91 18 108/64 98 Weight Weight 143.789 kg - Physical Examination General: NAD Cardiovascular: no m/r/g, RRR Respiratory: clear to auscultation bilaterally, non-labored breathing Skin: CS incision dry & intact (covered with dressing, j-p drain), no rash Neurological: no gross focal deficits Psychiatric: A&Ox3, normal affect Result Diagrams: 08/01/20 06:40 Additional Labs: Post Labs Hep Bs Antigen Non-Reactive S/CO (NonReactive) 07/31/20 07:04 Blood Type B POSITIVE 07/31/20 07:04 - Assessment/Plan 30yo now delivered via RLTCS at 39.0wks - POD#0 - Continue routine PP care - 4hr H&H stable will start Lovenox PPx due to BMI. Recheck H&H in AM.
[2020-07-31 13:29] LABS: Hemoglobin 11.1 g/dL (12.0-16.0); Mean Corpuscular HGB CONC 32.8 g/dL (32.0-36.0); Mean Corpuscular Hemoglobin 28.9 pg (27.0-31.0); Mean Corpuscular Volume 88.2 fL (78.0-98.0); Platelet Count 174 thou/uL (130-400); RBC Distribution Width 12.7 % (11.5-14.5); Red Blood Cell (RBC) Count 3.85 mill/uL (4.20-5.40); White Blood Cell (WBC) Count 12.7 thou/uL (4.8-10.8)
[2020-07-31] MEDS ORDERED: Ibuprofen 800 MG TAB PO SCH (14:00)
[2020-07-31] MEDS: Ibuprofen 800 MG TAB PO SCH ×2 (15:11→22:29)
[2020-07-31] MEDS ORDERED: Ketorolac Tromethamine 30 MG/ML VIAL IVP PRN (15:45)
[2020-07-31] MEDS ORDERED: Sodium Chloride 0.9% 10 ML ONE (15:58)
[2020-07-31] MEDS: Simethicone Chewable 80 MG TAB PO PRN (16:03)
[2020-07-31] MEDS ORDERED: Enoxaparin Sodium 60 MG/0.6 ML SYRINGE SC SCH (21:00)
[2020-07-31] MEDS: Enoxaparin Sodium 80 MG/0.8 ML SYRINGE SC SCH (21:31)
[2020-07-31] MEDS: Docusate Calcium (SURFAK) 240 MG CAP PO SCH (21:31)
[2020-07-31] MEDS: Ferrous Sulfate 325 MG TAB PO SCH (22:29)
[2020-08-01] MEDS: Simethicone Chewable 80 MG TAB PO PRN ×5 (00:21→22:07)
--- NOTE | 2020-08-01 02:17 | PDOC.PP ---
Post Progress Note Post Day #: 1 Subjective: Doing well. No concerns. Pain well controlled w/ toradol. Has not required [place]. Byrd removed at midnight. Due to void. PO intake tolerated: yes Flatus: no Ambulation: no Vital Signs (12 hours) Temp Pulse Resp BP Pulse Ox 08/01/20 00:00 98.3 F 86 18 108/63 07/31/20 19:37 98.8 F 77 20 112/55 L 95 07/31/20 17:15 98.4 F 78 12 104/54 L 97 07/31/20 15:10 98.6 F 71 16 114/59 L 99 Weight Weight 143.789 kg - Physical Examination General: NAD Cardiovascular: no m/r/g, RRR Respiratory: clear to auscultation bilaterally, non-labored breathing Abdominal: + bowel sounds, lochia (downtrending), no distention, appropriately TTP Fundus firm & at: 1 fingerwidth below umbilicus Skin: CS incision dry & intact, no rash Deviation from normal: bandage removed, drain w/ minimal serosanguinous drainage, left in place Neurological: no gross focal deficits Psychiatric: A&Ox3, normal affect Result Diagrams: 07/31/20 13:06 Additional Labs: Post Labs Hep Bs Antigen Non-Reactive S/CO (NonReactive) 07/31/20 07:04 Blood Type B POSITIVE 07/31/20 07:04 - Assessment/Plan 30 yo G2 now P2002 delivered at 39.0 wga POD #1 s/p RLTCS - meeting milestones - due to void - encourage ambulation, PO intake today - awaiting AM CBC. Total QBL from surgery/recovery approx 600 mL - remove drain later this AM if no more drainage occurs. Morbid obesity - anticoagulation in immediate period with lovenox 70 mg BID Short IPI - will contraception plan prior to discharge. 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 Monitor today and continue routine care.
[2020-08-01] MEDS: HYDROcodone/Acetaminophen 5/325 mg Tablet PO PRN ×5 (04:32→23:39)
[2020-08-01] MEDS: Ibuprofen 800 MG TAB PO SCH ×3 (06:50→22:05)
[2020-08-01 06:54] LABS: Hemoglobin 10.5 g/dL (12.0-16.0); Mean Corpuscular HGB CONC 33.2 g/dL (32.0-36.0); Mean Corpuscular Hemoglobin 28.7 pg (27.0-31.0); Mean Corpuscular Volume 86.7 fL (78.0-98.0); Platelet Count 175 thou/uL (130-400); RBC Distribution Width 12.9 % (11.5-14.5); Red Blood Cell (RBC) Count 3.67 mill/uL (4.20-5.40)
--- NOTE | 2020-08-01 06:59 | OP ---
DATE OF PROCEDURE: 07/31/2020 PROCEDURE PERFORMED: Repeat low-transverse section with vacuum extraction of . PRIMARY SURGEON: Emi Johnson MD. CARTOON ANIMATOR: Chioma Leslie MD. ATTENDING: Dr. Buitrago. ANESTHESIA: Spinal. QUANTITATIVE BLOOD LOSS: 395 mL SPECIMENS REMOVED: Cord blood obtained for blood type. FINDINGS: Placenta, three-vessel cord intact, discarded. Viable male with Apgars of 8 and 9 at one and five minutes of life respectively. DRAINS: Byrd to gravity draining clear urine. PABLO drain in subcutaneous space. PREOPERATIVE DIAGNOSES: 1. Term intrauterine . 2. Prior section. 3. Morbid obesity. 4. Short interval. POSTOPERATIVE DIAGNOSES: 1. Term intrauterine , delivered. 2. Prior section. 3. Morbid obesity. 4. Short interval. PROCEDURE IN DETAIL: After risks, benefits, and alternatives were explained to the patient, she gave informed consent. Preoperative antibiotics included 2 g cefazolin IV. The patient was taken to the operating room, where spinal anesthesia was initiated. She was placed in the supine position with a left tilt. She was prepped and draped in the usual sterile fashion. A Pfannenstiel incision over previous scar was made with a scalpel. This was carried down to the level of the fascia which was sharply nicked. The fascial cut was extended bilaterally with Billingsley scissors. The superior and inferior edges of the fascia were elevated and sharply and bluntly dissected free. The rectus muscles were divided digitally and retracted manually. The peritoneum was entered bluntly and retracted manually. No intraabdominal adhesions were palpated or observed. The Zhang O retractor was placed. A low-transverse uterine incision was made using a scalpel. The uterine cavity was entered bluntly. The hysterotomy was extended manually. Delivery of the head was attempted with fundal pressure; however, due to the patient's size, a vacuum was placed on the infant's head and used to extract the infant. Cord was clamped and cut. The was taken to the warmer to the team. The cord blood was collected for blood type. The placenta was delivered spontaneously with cord traction and fundal massage. The endometrium was curetted with dry lap x1. The uterus was exteriorized and massaged. Edges of the hysterotomy were clamped. The hysterotomy was closed with 1 Monocryl in a running locking fashion. Hemostasis of the hysterotomy was noted after single-layer closure. The posterior aspect of the uterus was inspected and there was no bleeding nor clots. Uterus was returned to the abdominal cavity. The hysterotomy was again noted to be hemostatic. The rectus muscles were inspected and no bleeders were observed. The fascia was closed using 1 PDS in a running nonlocking fashion with the exception of locking first stitch. The subcutaneous space was irrigated with sterile saline. A PABLO drain was placed. The subcutaneous space was closed with 2-0 plain gut with interrupted sutures on the deep layer and then a running subcutaneous stitch in a second layer. The skin was closed with asher and well approximated. The patient tolerated the procedure well. All counts were correct. The PABLO drain was sewn in place with a nylon suture. The patient went to recovery for routine care. Postoperatively, we will obtain a 4-hour postop hemogram. Due to the patient's morbid obesity, we will start Lovenox 70 mg b.i.d. starting at 9 p.m. tonight if the 4-hour hemogram is stable. Job ID: [id number] [facility]
[2020-08-01] MEDS: Enoxaparin Sodium 80 MG/0.8 ML SYRINGE SC SCH ×2 (08:19→22:07)
[2020-08-01] MEDS: Docusate Calcium (SURFAK) 240 MG CAP PO SCH ×3 (08:19→22:14)
[2020-08-01] MEDS: Prenatal Vitamin 1 TAB PO SCH (08:19)
[2020-08-01] MEDS: Ferrous Sulfate 325 MG TAB PO SCH ×2 (11:32→23:06)
--- NOTE | 2020-08-02 02:55 | PDOC.PP ---
Post Progress Note Post Day #: 2 Subjective: Doing well. No concerns. PO intake tolerated: yes Flatus: yes Ambulation: yes Vital Signs (12 hours) Temp Pulse Resp BP Pulse Ox 08/02/20 00:04 98.4 F 80 16 112/59 L 08/01/20 19:44 98.0 F 74 12 104/61 96 08/01/20 17:24 98.6 F 105 H 16 99/68 94 L Weight Weight 143.789 kg - Physical Examination General: NAD Cardiovascular: RRR Respiratory: non-labored breathing Abdominal: + bowel sounds, lochia (downtrending), no distention, appropriately TTP Fundus firm & at: 2 fingerwidth below umbilicus Skin: CS incision dry & intact, no rash Neurological: no gross focal deficits Psychiatric: A&Ox3, normal affect Result Diagrams: 08/01/20 06:40 Additional Labs: Post Labs Hep Bs Antigen Non-Reactive S/CO (NonReactive) 07/31/20 07:04 Blood Type B POSITIVE 07/31/20 07:04 - Assessment/Plan 30 yo G2 now P2002 delivered at 39.0 wga POD #2 s/p RLTCS - meeting milestones - postop hemoglobin stable - routine cares - remove asher just prior to discharge or in 1 week at clinic Morbid obesity - anticoagulation with lovenox 70 mg BID, continue for 6 weeks status post discharge. 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 Stable and ready for discharge home today.
[2020-08-02] MEDS: HYDROcodone/Acetaminophen 5/325 mg Tablet PO PRN (05:02)
[2020-08-02] MEDS: Ibuprofen 800 MG TAB PO SCH (05:02)
[2020-08-02] MEDS ORDERED: HYDROcodone/Acetaminophen 5/325 mg Tablet PO PRN (06:50)
[2020-08-02] MEDS: Ferrous Sulfate 325 MG TAB PO SCH (07:10)
[2020-08-02 08:21] VITALS: BP 100/54; TEMP 97.9
[2020-08-02] MEDS: Docusate Calcium (SURFAK) 240 MG CAP PO SCH (08:51)
[2020-08-02] MEDS: Enoxaparin Sodium 80 MG/0.8 ML SYRINGE SC SCH (08:51)
[2020-08-02] MEDS: Prenatal Vitamin 1 TAB PO SCH (08:51)
== END 2020-08-02 13:10 | disposition home or self-care (01) | DRG 788 ==
LOC: L&D 05:31 → 3SW 13:14
PROVIDERS: ADMIT Family Medicine; ATTEND Family Medicine
PROC: 10D00Z1 Extraction of Products of Conception, Low, Open Approach (ICD-10-PCS; principal; 2020-07-31)
DX: O34.211 Maternal care for low transverse scar from previous cesarean delivery (principal); Z3A.39 39 weeks gestation of pregnancy; Z37.0 Single live birth; O99.214 Obesity complicating childbirth; E66.01 Morbid (severe) obesity due to excess calories
CPT/HCPCS: 36415; 36416; 85027; 86780; 86850; 86900; 86901; 87340; J1650; J1885; J2175; J2270; J2405; J3490; Q0163